=== PATIENT | female | born 1960 | race African-American/Black ===

== ENCOUNTER 2021-03-25 10:52 | Emergency (ER) | payer MEDICAID, OTHER ==
[~2021-03-25] VITALS: Ht 175.3 cm; Wt 108.9 kg
[~2021-03-25 10:52] MED LIST: AMLO-496; LISI40TA11
[2021-03-25] MEDS ORDERED: cloNIDine HCL 0.1 MG TAB PO ONE (11:45)
[2021-03-25 12:18] VITALS: BP 151/87
[2021-03-25 12:30] LABS: Basophils # (auto) 0 10 ^3/uL (0-0.2); Basophils % (auto) 0.7 % (0.0-2.0); Eosinophils # (auto) 0 10 ^3/uL (0-0.8); Eosinophils % (auto) 0.1 % (0.0-7.0); Hematocrit 41.1 % (36.0-46.0); Hemoglobin 14.1 g/dL (12.2-16.2); Lymphocytes # (auto) 1.6 10 ^3/uL (0.4-5.4); Lymphocytes % (auto) 36.7 % (10.0-50.0); Mean Corpuscular Hemoglobin 28.5 pg (28.0-32.0); Mean Corpuscular Hgb Conc. 34.4 g/dL (32.0-36.0); Mean Corpuscular Volume 82.9 fL (80.0-100.0); Monocytes # (auto) 0.5 10 ^3/uL (0-1.3); Monocytes % (auto) 11.6 % (0.0-12.0); Neutrophils # (auto) 2.2 10 ^3/uL (1.6-8.6); Neutrophils % (auto) 50.9 % (37.0-80.0); Nucleated Red Blood Cells % 0.1 %; Red Blood Cells 4.96 10^6/uL (4.0-5.20); Red Cell Distribution Width 14.6 % (11.8-14.3); White Blood Cell 4.4 10^3/uL (4.4-10.8)
[2021-03-25 12:46] LABS: Albumin 4.3 g/dL (3.4-5.0); Calcium 9.4 mg/dL (8.5-10.1)
[2021-03-25 12:48] LABS: BUN/Creatinine Ratio 11.3
[2021-03-25 12:51] LABS: Bilirubin, Total 0.3 mg/dL (0.2-1.0); Total Protein 7.6 g/dL (6.4-8.2)
[2021-03-25 12:56] LABS: Potassium 2.8 mmol/L (3.5-5.1)
[2021-03-25 13:02] LABS: Urine Bacteria MOD /hpf (None Seen); Urine Blood Negative /uL (Negative); Urine Hyaline Cast MANY /lpf (0 - 2); Urine Mucus FEW (None Seen); Urine Specific Gravity 1.026 (1.001-1.035); Urine WBC 2 /hpf (0 - 5)
[2021-03-25] MEDS ORDERED: POTASSIUM CHL 20 Meq TABLET PO ONE (13:15)
== END 2021-03-25 15:38 | disposition home or self-care (01) ==
LOC: ER 10:52
DX: I16.0 Hypertensive urgency (principal); N39.0 Urinary tract infection, site not specified; E11.9 Type 2 diabetes mellitus without complications; E78.5 Hyperlipidemia, unspecified; F17.210 Nicotine dependence, cigarettes, uncomplicated; Z86.73 Personal history of transient ischemic attack (TIA), and cerebral infarction without residual deficits; Z79.899 Other long term (current) drug therapy
CPT/HCPCS: 36415; 80053; 81001; 85025; 93005